=== PATIENT | male | born 2000 | race Caucasian/White ===

== ENCOUNTER 2019-07-23 13:38 | Emergency (ER) | payer BC, SELFPAY ==
[2019-07-23] VITALS (8 sets, daily range): BP systolic 121–140; BP diastolic 66–83; PULSE 56–74; RESP 16–18; TEMP 36.7; O2SAT 96–100; BMI 21.5
--- NOTE | 2019-07-23 14:08 | ED.DCSUM_ITS ---
- ER Visit Summary Date of Service: 07/23/19 Chief Complaint: Depressed with suicidal ideation History of Present Illness: The patient is a 18 M depression been under treatment with Lexapro since February of last year. Patient states that she is getting more depressed. And states if he had a gun he did shoot himself. He is never attempted before in the past. His mother also suffers from depression. He has never been hospitalized for his depression. Physical Examination: Young male no acute distress. Vital signs are stable afebrile. H EENT exam unremarkable atraumatic. No smell of alcohol. Pupils are reactive eyes motions are intact. Normal speech. Neck nontender no lymphadenopathy. No trauma. Lungs clear to auscultation bilaterally. Heart regular rhythm no murmur. Control abdomen soft nontender. Normal bowel sounds no peritoneal signs. Patient is moving all 4 extremities. Neurovascular intact. Nontender no edema. No signs of trauma. Test Results: Normal. Chemistry normal. Alcohol negative. Tox screen pending. Emergency Department Course and Treatment: Patient undergo ED mental health evaluation. He also speak to our director of social services. Currently he is calm and cooperative. He is not violent nor abusive. Treatment Plan: structural steel ironworker also spoke to the patient. He gave her additional information she fears as I do that he is a significant risk for attempting suicide. And she is working on placement. Disposition: For to a psychiatric facility. Patient is being pink slipped. Impression: Acute on chronic depression Suicidal ideation This note was generated with [employer] dictation software. It may contain incorrect words, spelling, and punctuation that were not noted in review of the chart prior to signing ED Disposition - Plan for ED Patient: Referrals: Care Physician,No Primary [Primary Care Provider] -
[2019-07-23 14:25] LABS: Absolute Lymphocyte Count 1.74 X10^3/uL (0.83-4.51); Absolute Neutrophil Count 3.3 X10^3/uL (2.0-7.7); Basophil# 0.04 X10^3/uL; Basophil% 0.7 % (0-1); Eosinophil# 0.13 X10^3/uL; Eosinophils% 2.3 % (0-5); Hematocrit 43.1 % (40-54); Hemoglobin 14.2 g/dL (13.0-16.5); Lymphocyte # 1.74 X10^3/ul (4.0); Lymphocyte % 30.6 % (19-41); Mean Corp Hgb Conc 32.9 g/dL (32-36); Mean Corpuscular Hgb 29.6 pg (27.0-32.0); Mean Platelet Vol. 9.9 fl (6.2-12.0); Monocyte% 8.8 % (0-10); NRBC Flagged by Analyzer 0 % (0-5); Neutrophil # 3.27 X10^3/uL (2.7-7.7); Neutrophil % 57.4 % (47-70); Platelet Count 161 K/mm3 (150-450); RBC Distribution Width CV 12.4 % (11.6-14.6); Red Blood Count 4.79 M/mm3 (4.6-6.2); White Blood Count 5.7 K/mm3 (4.4-11.0)
[2019-07-23 14:38] LABS: Anion Gap 4 (5-15); BUN 9 mg/dL (7-18); BUN/Creat Ratio 8.3 RATIO (10-20); Calcium,Total 9.3 mg/dL (8.5-10.1); Chloride 105 mmol/L (98-107); Creatinine, Serum 1.09 mg/dL (0.70-1.30); EST Glomerular Filtration Rate 91 mL/min (>60); Est Glom Filt Rate - Afr Amer 110 mL/min (>60); Estimated Creatinine Clearance 107.19 ml/min; Glucose 87 mg/dL (74-106); Potassium 4.4 mmol/L (3.5-5.1); Sodium Level 139 mmol/L (136-145)
[2019-07-23 14:57] LABS: Alcohol, Blood (Medical)-Serum < 3.0 mg/dL
--- NOTE | 2019-07-23 15:10 | CM.ED ---
SOCIAL WORK ASSESSMENT INFORMANT: DR. METZGER REASON FOR REFERRAL: SUICIDAL IDEATION CHIEF COMPLIANT: PATIENT PRESENTS TO EMERGENCY DEPARTMENT BY OFFICER FROM [facility]. PATIENT WITH SUICIDAL IDEATION AND REPORTED IF I COULD GET A GUN, I WOULD SHOOT MYSELF. PATIENT PINK SLIPPED. MARITAL STATUS: SINGLE LIVING SITUATION: PATIENT REPORTS LIVES ON CAMPUS AT [facility] WITH ROOMMATE. SUPPORT/RESOURCES: FRIENDS, COUNSELOR AT [facility] (PATIENT STATES COUNSELOR HAS BEEN BOOKED UP WITH OTHER STUDENTS.) EDUCATION: PATIENT REPORTS IS IN 3RD YEAR AT [facility]. PATIENT STATES DOES NOT WANT TO BE IN SCHOOL, BUT FAMILY IS MAKING ME GET A DEGREE. MENTAL HEALTH TREATMENT/HISTORY: PATIENT REPORTS HAS BEEN DIAGNOSED WITH DEPRESSION AND ANXIETY AND IS PRESCRIBED LEXAPRO THOUGH A PHYSICIAN AT [facility]. PATIENT REPORTS MOTHER HAS HISTORY OF DEPRESSION. PATIENT REPORTS NO PREVIOUS HOSPITALIZATIONS. ABUSE ISSUES: PATIENT DENIES ANY HISTORY OF ABUSE. SUBSTANCE ABUSE HISTORY: PATIENT DENIES ANY ISSUES WITH SUBSTANCES. PATIENT REPORTS WILL OCCASIONALLY DRINK ALCOHOL. SOCIAL STRESSORS: PATIENT REPORTS I'M [place] AND MY FAMILY HATES [place] PEOPLE. PATIENT REPORTS HAS NEVER CAME OUT TO FAMILY. PATIENT REPORTS ISSUES WITH SLEEP. PATIENT STATES UNABLE TO FALL ASLEEP OR STAY ASLEEP AND ONLY SLEEPS EVERY OTHER NIGHT. MENTAL STATUS EXAM: ORIENTATION- A&OX3 MEMORY- GOOD APPEARANCE/GENERAL BEHAVIOR: CLEAN/APPROPRIATE, CALM MOOD/AFFECT: FLAT, DEPRESSED COMMUNICATION PATTERN: RESPONDS TO QUESTIONS THOUGHT PROCESS: APPROPRIATE JUDGMENT: FAIR RISK TO SELF/OTHERS: SUICIDAL- PATIENT REPORTS HAS THOUGHTS OF SUICIDE 1-2X WEEK. PATIENT REPORTS WANTING TO HANG HIMSELF, SHOOT HIMSELF OR CUT HIS OWN THROAT. PATIENT STATES DURING LAST SEMESTER HAD PLAN TO CUT HIMSELF AND ROOMMATE WALKED IN. HOMICIDAL- PATIENT DENIES ANY HOMICIDAL IDEATION ASSESSMENT: MET WITH PATIENT IN ROOM. PATIENT WITH 1:[address] INTRODUCED ROLE AND REASON FOR REFERRAL. PATIENT REPORTS ACTIVE SUICIDAL THOUGHTS. PATIENT REPORTS PLANS TO HARM SELF BY HANGING, SHOOTING HIMSELF, OR CUTTING. PATIENT STATES MANY SOCIAL STRESSORS D/T ISSUES WITH FAMILY. PATIENT REPORTS NO LONGER WANTS TO ATTEND [facility] AND FAMILY IS NOT ACCEPTING THEY WANT PATIENT TO GET A DEGREE. PATIENT ALSO REPORTS IS [place] AND HAS BEEN UNABLE TO COME OUT TO HIS FAMILY THEY HATE [place] PEOPLE. PATIENT REPORTS HISTORY OF DEPRESSION AND ANXIETY AND STATES IS PRESCRIBED LEXAPRO. PATIENT STATES FEELS MEDICATION WORKS SOMETIMES. PATIENT STATES HAS BEEN UNABLE TO SEE COUNSELOR THROUGH SCHOOL THEY ARE BOOKED UP WITH OTHER STUDENTS. DISCUSSED OTHER OPTIONS FOR COUNSELING AND PATIENT REPORTS DOES HAVE A CAR ON CAMPUS. DISCUSSED HOSPITALIZATION AND PATIENT FEELS WOULD BENEFIT FROM STABILIZATION. COLLABORATION WITH DR. METZGER WHO IS IN AGREEMENT WITH HOSPITALIZATION AND WILL COMPLETE PINK SLIP. INTERVENTIONS: SOCIAL SERVICE ASSESSMENT [place] SUICIDE RISK ASSESSMENT 1:[address] REFERRAL FOR INPATIENT HOSPITALIZATION PLAN: INPATIENT PSYCH HOSPITALIZATION. WILL MAKE REFERRAL ONCE PATIENT IS MEDICALLY CLEARED. Lynda HARRISON MSW, DIE MAKER BENCH STAMPING.
[2019-07-23 17:03] LABS: Amphetamine Urine VISTA NEGATIVE (<1000 ng/mL); Barbiturate Urine VISTA NEGATIVE (< 200 ng/mL); Benzodiazepine Urine VISTA NEGATIVE (< 200 ng/mL); Cocaine Urine VISTA NEGATIVE (< 300 ng/mL); Ecstacy Urine VISTA NEGATIVE (< 500 ng/mL); Methadone Urine VISTA NEGATIVE (< 300 ng/mL); PCP Urine VISTA NEGATIVE (< 25 ng/mL); THC Urine VISTA NEGATIVE (< 50 ng/mL); Vista UDS pH Range 7
--- NOTE | 2019-07-23 17:07 | CM.ED ---
SOCIAL WORK REFERRAL FAXED AND CALLED TO [facility]. AWAITING ACCEPTANCE. Lynda HARRISON, INPATIENT NURSING AIDE, SALOON KEEPER.
--- NOTE | 2019-07-23 17:31 | CM.ED ---
SOCIAL WORK CALL FROM [facility] REQUESTING INSURANCE VERIFICATION INFORMATION. SPOKE WITH REGISTRATION, INSURANCE VERIFICATION OBTAINED AND FAXED TO [facility] AT THIS TIME. Lynda HARRISON, FUEL CELL REPAIRER, ADULT FAMILY HOME PROGRAM MANAGER.
--- NOTE | 2019-07-23 18:40 | CM.ED ---
SOCIAL WORK CALL FROM [facility]. PATIENT ACCEPTED TO [facility] UNIT BY DR. ARENAS. NURSE TO CALL REPORT TO [phone]. COPY OF PINK SLIP FAXED AT THIS TIME. DENTAL PROSTHETIST TO SET UP TRANSPORT. Lynda HARRISON, RETAIL SALES ASSISTANT, KEEPER HELPER
--- NOTE | 2019-07-23 19:05 | NURSING ---
[facility]
== END 2019-07-23 20:26 ==
PROVIDERS: Emergency Provider Emergency Medicine
DX: F32.9 Major depressive disorder, single episode, unspecified (principal); R45.851 Suicidal ideations; Z79.899 Other long term (current) drug therapy; F17.220 Nicotine dependence, chewing tobacco, uncomplicated
CPT/HCPCS: 36415; 80048; 80307; 80320; 85025; 99285; G0480